=== PATIENT | male | born 1985 | race Caucasian/White ===

== ENCOUNTER 2016-09-30 10:19 | Emergency (ER) | END 2016-09-30 19:34 | disposition home or self-care (01) | DX: K40.90 Unilateral inguinal hernia, without obstruction or gangrene, not specified as recurrent (principal); R11.0 Nausea | CPT/HCPCS: 74177; 76870; 80048; 81003; 85025; 87086; 96374; 96375; J2270; J2405; J2543; J7030; J7042; Q9967; Z7502; Z7610 ==

== ENCOUNTER 2017-05-08 23:16 | Emergency (ER) | payer MEDICAID ==
[~2017-05-08] VITALS: Ht 175.3 cm; Wt 118.0 kg
[~2017-05-08 23:16] MED LIST: IBUP-1542 PO
[2017-05-08 23:21] VITALS: Ht 175.3 cm; Wt 118.0 kg
--- NOTE | 2017-05-09 00:42 | ERD ---
ER Documentation Chief Complaint Chief Complaint requesting removal of ring on left 4th finger HPI This 31 YO right male patient present to ED with a stainless steal/ titanium ring stuck on left ring finger. pt bought the ring for $1.89 on line ROS All systems reviewed and are negative except as per history of present illness. Medications Home Meds Active Scripts Ibuprofen* (Motrin*) 600 Mg Tab, 600 MG PO Q6H Y for PAIN AND OR ELEVATED TEMP, #20 TAB Prov:ALFREDO HARDEN MD 09/30/16 Allergies Allergies: Coded Allergies: No Known Allergy (Unverified , 09/30/16) PMhx/Soc Medical and Surgical Hx: pt denies Medical Hx, pt denies Surgical Hx History of Surgery: Yes (APPY) Anesthesia Reaction: No Hx Neurological Disorder: No Hx Respiratory Disorders: No Hx Cardiac Disorders: No Hx Psychiatric Problems: No Hx Miscellaneous Medical Probl: No Hx Alcohol Use: Yes (SOCIALLY) Hx Substance Use: No Hx Tobacco Use: No Physical Exam Vitals Vital Signs Date Time Temp Pulse Resp B/P Pulse Ox O2 Delivery O2 Flow Rate FiO2 05/08/17 23:21 97.7 68 20 150/89 99 Vitals stable, triage notes reviewed Physical Exam Const: Well-nourished well-hydrated well-appearing 31-year-old male patient no acute distress Head: Eyes: ENT: Neck: Resp: Cardio: Abd: Skin: Back: Ext: Hand - bilateral: Skin: No laceration, or evidence of external trauma Compartments: Soft Sensation: [ntact shoulder/pinky/middle finger/thumb web space Bones: Nontender Snuffbox: Nontender Joints: No effusion Finger: Right hand ring finger presents with a hard metal ring tight below bulbous knuckle unable to remove ring Flex/Ext: Normal Add/abd: Normal Thumb: Flex/Ext: Normal Opposition: Normal Thumbs up: Normal Neur: Awake and alert Psych: Normal Mood and Affect Procedures/MDM This 31-year-old male patient presents to emergency department patient reports that a ring is stuck on his left ring finger, patient bought a stainless steel/ titanium ring for under $2 on line tried it on today and was not able to get the ring off. Emergency room course includes history and physical exam, patient has soft tissue swelling at knuckle, reading is able to turn clockwise and counterclockwise been unable to pass knuckle. Capillary refill is brisk. Attempt cutting ring off with scissors, scissor apparatus for rings popped off with use. Attempt ring cutting with ring cutter, 30 minutes post evaluation rings still remains tight on patient's finger with little need way of cutting. I have low suspicion that reading is a titanium ring for $2 but unable to cut through rating at this time. Urgency room 10 patient was able to remove morning with large cutter. Patient's skin is intact, no laceration abrasion or ecchymosis, full range of motion with flexion and extension of PIP, MIP, and DIP. Plan to discharge patient home no medication is indicated. Patient is stable with no new complaints during ER course, clinically there is no current evidence to suggest fracture, dislocation, or subluxation. Neurovascular injury , [place], ligament injury or any other emergent condition appearing to require further evaluation or hospitalization. I feel the patient is stable for discharge at this time. I have discussed results, examination findings, the treatment plan with the patient and family present prior to discharge. Indications for emergent reevaluation, side effects of medication were also discussed. All questions were answered. Patient verbalizes understanding and agrees with plan of care. Departure Diagnosis: Primary Impression: Constrictive jewelry of finger Encounter type: initial encounter Qualified Code: S60.449A - Constrictive jewelry of finger, initial encounter Condition: Good Additional Instructions: Thank you for for coming to the [facility] for your care today. Please ask your nurse or provider if you have questions about your care today and do not leave until all your questions have been answered. Please use any medications given as directed and follow-up with your doctor (or the doctor you were referred to) in the next 2-3 days. If you do not have a primary care doctor you may follow up at the [facility] [place] (listed below). You may also use motrin and tylenol as needed for fever and/or pain unless instructed otherwise by your provider or nurse. Indications for more urgent follow-up have been discussed, but you may return to the Emergency Department at ANY time for any worrisome or worsening symptoms. If you have abdominal pain, please know that no test or exam you received is perfect and you should follow up within 8 hours for continued pain. If you had any imaging studies today, such as an X-Ray or CT Scan, these studies will be reviewed later by a radiologist. You will be called if there are important findings that were not identified today, so make sure the contact information you provided at registration is correct. If you received any narcotic pain control medicine today, such as Vicodin, Morphine or Dilaudid, your coordination and judgment may be affected for a number of hours. Please do not drive or operate heavy machinery, and you may want someone to assist you at home. If you were given a prescription for narcotic medication, be aware that it is very addictive- use sparingly and only if necessary. GI MOORE May 09, 2017 00:42
== END 2017-05-09 02:57 | disposition home or self-care (01) ==
LOC: FTE 23:16
DX: S60.444A External constriction of right ring finger, initial encounter (principal); W49.04XA Ring or other jewelry causing external constriction, initial encounter; Y92.9 Unspecified place or not applicable
CPT/HCPCS: 99282